=== PATIENT | female | born 1960 | race Caucasian/White ===

== ENCOUNTER 2016-11-02 19:29 | Emergency (ER) | payer OTHER ==
[~2016-11-02] VITALS: Ht 157.5 cm; Wt 57.0 kg
[2016-11-02 19:33] VITALS: TEMP 36.8; Ht 157.5 cm; Wt 57.0 kg
[2016-11-02] MEDS ORDERED: KETOROLAC TROMETHAMINE 30 MG/ML VIAL IV STA (20:13)
[2016-11-02] MEDS ORDERED: SODIUM CHLORIDE 0.9% 1000ML 1,000 ML IV STA (20:13)
[2016-11-02] MEDS ORDERED: MECLIZINE HCL 25 MG TAB PO STA (20:13)
[2016-11-02] MEDS ORDERED: SODIUM CHLORIDE 0.65% NA SOLN 45 ML (OCEAN) STA (20:13)
[2016-11-02] MEDS ORDERED: PROCHLORPERAZINE 5 MG/ML 2 ML VIAL IV STA (20:13)
[2016-11-02] MEDS ORDERED: AMOXICILLIN/CLAVULANATE TAB 875 MG TAB PO ONE (20:15)
[2016-11-02 20:35] LABS: BASO % 0.4 %; BASO ABS # 0.02 K/uL (0-0.2); COMPLETE YES; EOS % 3.2 %; HEMATOCRIT 39.7 % (37-47); IG% 0.2 %; LYMPH % 29.6 %; LYMPH ABS # 1.66 K/uL (1.2-3.4); MEAN CORPUSCULAR HEMOGLOBIN 28.7 pg (25-34); MEAN CORPUSCULAR HGB CONC 32.2 g/dl (32-36); MEAN PLATELET VOLUME 9.4 fL (7.4-10.4); MONO % 10.3 %; NEUT % 56.3 %; PLATELET COUNT 274 K/uL (130-400); RED BLOOD COUNT 4.46 M/uL (4.2-5.4); WHITE BLOOD COUNT 5.61 K/uL (4.8-10.8)
[2016-11-02] MEDS ORDERED: SUPPLEMENTS PO (20:52)
[2016-11-02] MEDS ORDERED: SERT1TAB68 PO (20:52)
--- NOTE | 2016-11-02 21:34 | EMERGENCY ROOM VISIT NOTE ---
History Report prepared by Ryalnd: Arti Keen Under the Supervision of: Dr. Caesar Price M.D. First contact with patient: 20:04 Chief Complaint: NAUSEA Stated Complaint: NAUSEA,SWEATY,WEAK,DIZZY History of Present Illness The patient is a 56 year old female who presents to the Emergency Room with complaints of an episode of nausea starting last night. The patient states that she felt better this morning and decided to go to work. She reports that while there she started to feel pressure in her head and get dizzy. She notes that the nausea came back as well. She states that she took Sudafed with no relief. The patient notes that she couldn't drive home. She complains that her hearing has worsened since getting sick. She denies a headache. Source of History: patient Onset: last night Position: other (global) Quality: other (global) Timing: other (episode) Associated Symptoms: No headache Note: The patient complains of dizziness and her hearing worsening. Review of Systems See HPI for pertinent positives & negatives. A total of 10 systems reviewed and were otherwise negative. Past Medical & Surgical Medical Problems: (1) Hypothyroid Family History Cancer Diabetes mellitus Hypertension Lung disease Social History Smoking Status: Current Every Day Smoker Alcohol Use: none Drug Use: none Marital Status: Housing Status: lives with significant other Occupation Status: employed Current/Historical Medications Scheduled Amoxicillin & Pot Clavulanate (Augmentin 875-125 mg), 1 TAB PO BID Ondasetron Odt (Zofran Odt), 4 MG SL Q6H Sertraline Hcl (Zoloft), 100 MG PO DAILY [Various Supplements], 1 EA PO UD Scheduled PRN Meclizine Hcl (Meclizine Hcl), 1 TAB PO TID PRN for Dizziness or Vertigo Allergies Coded Allergies: No Known Allergies (Unverified , 11/02/16) Physical Exam Vital Signs Date Time Temp Pulse Resp B/P (MAP) Pulse Ox O2 Delivery O2 Flow Rate FiO2 11/02/16 22:01 58 18 102/64 97 11/02/16 21:19 62 18 125/58 98 Room Air 11/02/16 20:41 50 11/02/16 19:33 36.8 71 18 124/81 97 Room Air Physical Exam GENERAL: Patient is a healthy-appearing well-nourished HEAD: Normocephalic atraumatic EYES: Ocular movements intact pupils equal and react to light OROPHARYNX mucous membranes are moist no exudates present no erythema or edema present NECK: Supple no nuchal rigidity CHEST: Good equal expansion LUNGS: Clear and equal to auscultation CARDIAC: Normal S1 and S2 ABDOMEN: Soft nontender no guarding BACK: No CVA tenderness EXTREMITIES: No pain upon palpation normal muscle strength in all groups no clubbing cyanosis or edema NEURO: Patient is following commands and answering questions appropriately. Alert and oriented x3 Cranial Nerves 2-12 grossly intact Medical Decision & Procedures Laboratory Results 11/02/16 20:26 Red Blood Count 4.46, Mean Corpuscular Volume 89.0, Mean Corpuscular Hemoglobin 28.7, Mean Corpuscular Hemoglobin Concent 32.2, Mean Platelet Volume 9.4, Neutrophils (%) (Auto) 56.3, Lymphocytes (%) (Auto) 29.6, Monocytes (%) (Auto) 10.3, Eosinophils (%) (Auto) 3.2, Basophils (%) (Auto) 0.4, Neutrophils # (Auto ) 3.16, Lymphocytes # (Auto) 1.66, Monocytes # (Auto) 0.58, Eosinophils # (Auto ) 0.18, Basophils # (Auto) 0.02 11/02/16 20:26 Test 11/02/16 20:26 11/02/16 21:20 White Blood Count 5.61 K/uL (4.8-10.8) Red Blood Count 4.46 M/uL (4.2-5.4) Hemoglobin 12.8 g/dL (12.0-16.0) Hematocrit 39.7 % (37-47) Mean Corpuscular Volume 89.0 fL (80-100) Mean Corpuscular Hemoglobin 28.7 pg (25-34) Mean Corpuscular Hemoglobin Concent 32.2 g/dl (32-36) Platelet Count 274 K/uL (130-400) Mean Platelet Volume 9.4 fL (7.4-10.4) Neutrophils (%) (Auto) 56.3 % Lymphocytes (%) (Auto) 29.6 % Monocytes (%) (Auto) 10.3 % Eosinophils (%) (Auto) 3.2 % Basophils (%) (Auto) 0.4 % Neutrophils # (Auto) 3.16 K/uL (1.4-6.5) Lymphocytes # (Auto) 1.66 K/uL (1.2-3.4) Monocytes # (Auto) 0.58 K/uL (0.11-0.59) Eosinophils # (Auto) 0.18 K/uL (0-0.5) Basophils # (Auto) 0.02 K/uL (0-0.2) RDW Standard Deviation 43.6 fL (36.4-46.3) RDW Coefficient of Variation 13.2 % (11.5-14.5) Immature Granulocyte % (Auto) 0.2 % Immature Granulocyte # (Auto) 0.01 K/uL (0.00-0.02) Anion Gap 7.0 mmol/L (3-11) Est Creatinine Clear Calc Drug Dose 61.3 ml/min Estimated GFR () 92.7 Estimated GFR (Non- 79.9 BUN/Creatinine Ratio 38.7 (10-20) Calcium Level 8.7 mg/dl (8.5-10.1) Total Bilirubin 0.4 mg/dl (0.2-1) Direct Bilirubin mg/dl (0-0.2) Aspartate Amino Transf (AST/SGOT) 27 U/L (15-37) Alanine Aminotransferase (ALT/SGPT) 30 U/L (12-78) Alkaline Phosphatase 64 U/L (45-117) Total Protein 6.6 gm/dl (6.4-8.2) Albumin 3.9 gm/dl (3.4-5.0) Lipase 156 U/L (73-393) Chemistry Specimen Hemolysis Urine Color YELLOW Urine Appearance CLEAR (CLEAR) Urine pH 5.0 (4.5-7.5) Urine Specific [place] 1.027 (1.000-1.030) Urine Protein NEG (NEG) Urine Glucose (UA) NEG (NEG) Urine Ketones TRACE (NEG) Urine Occult Blood NEG (NEG) Urine Nitrite NEG (NEG) Urine Bilirubin NEG (NEG) Urine Urobilinogen NEG (NEG) Urine Leukocyte Esterase SMALL (NEG) Urine WBC (Auto) 1-5 /hpf (0-5) Urine RBC (Auto) 0-4 /hpf (0-4) Urine Hyaline Casts (Auto) 0 /lpf (0-5) Urine Epithelial Cells (Auto) 10-20 /lpf (0-5) Urine Bacteria (Auto) NEG (NEG) Labs reviewed by ED physician. Medications Administered Medications (Trade) Dose Ordered Sig/Malini Route Start Time Stop Time Status Last Admin Dose Admin Sodium Chloride 1,000 ml @ 999 mls/hr Q1H1M STAT IV 11/02/16 20:13 11/02/16 21:13 DC 11/02/16 20:29 999 MLS/HR Ketorolac Tromethamine (Toradol Inj) 30 mg NOW STAT IV 11/02/16 20:13 11/02/16 20:17 DC 11/02/16 20:29 30 MG Prochlorperazine Edisylate (Compazine Inj) 5 mg NOW STAT IV 11/02/16 20:13 11/02/16 20:17 DC 11/02/16 20:29 5 MG Meclizine HCl (Antivert Tab) 25 mg NOW STAT PO 11/02/16 20:13 11/02/16 20:17 DC 11/02/16 20:29 25 MG Amoxicillin/ Clavulanate Potassium (Augmentin Tab) 875 mg ONE ONCE PO 11/02/16 20:15 11/02/16 20:17 DC 11/02/16 20:29 875 MG Sodium Chloride (Massac Nasal [place]) 2 sprays NOW STAT NA 11/02/16 20:13 11/02/16 20:17 DC 11/02/16 20:29 2 SPRAYS Ondansetron HCl (ZOFRAN ODT 4MG Home Pack) 1 homepack UD ONCE PO 11/02/16 21:45 11/02/16 21:46 DC 11/02/16 21:53 1 HOMEPACK ED Course 2006: Past medical records reviewed. The patient was evaluated in room A10. A complete history and physical examination was performed. 2012: Ordered Massac Nasal [place] 2 sprays NA, Antivert Tab 25 mg PO, Compazine Inj 5 mg IV, Toradol Inj 30 mg IV, NSS 1000 ml @ 999 mls/hr IV. 2014: Ordered Augmentin Tab 875 mg PO. 2144: Ordered Ondansetron HCl 1 homepack PO. 2146: Upon reexamination the patient is resting comfortably. I discussed results and treatment plan with the patient. She verbalizes agreement and understanding. The patient is ready for discharge. Medical Decision Etiologies such as migraine headache, meningitis, sinusitis, CO exposure, ICH, SAH, infection, tumor, headache, sinus thrombosis, arterial dissection, as well as others were entertained. This is a 56-year-old female who presents emergency department complaining of sinusitis-like symptoms. Based on her physical exam and fact that the patient does not have any evidence of meningitis or encephalitis on examination we decided to place the patient on Augmentin along with nasal saline spray. In addition the patient was also given meclizine for dizziness. Repeat examination revealed much improvement the patient's symptoms. I do feel that the patient is well enough to be discharged home for follow-up with her primary care physician. Patient was in agreement with the treatment plan. Impression Primary Impression: Sinusitis Scribe Attestation The scribe's documentation has been prepared under my direction and personally reviewed by me in its entirety. I confirm that the note above accurately reflects all work, treatment, procedures, and medical decision making performed by me. Departure Information Dispostion Home / Self-Care Prescriptions Ondasetron Odt (ZOFRAN ODT) 4 Mg Tab 4 MG SL Q6H for Nausea, #6 TAB Prov: Caesar Price MD 11/02/16 Meclizine Hcl (MECLIZINE HCL) 25 Mg Tab 1 TAB PO TID Y for Dizziness or Vertigo for 10 Days, #30 TAB Prov: Caesar Price MD 11/02/16 Amoxicillin & Pot Clavulanate (Augmentin 875-125 mg) 1 Tab Tab 1 TAB PO BID for 10 Days, #20 TAB Prov: Caesar Price MD 11/02/16 Referrals Clarke Oliver D.O. (PCP) Forms HOME CARE DOCUMENTATION FORM, IMPORTANT VISIT INFORMATION Patient Instructions My [facility] Additional Instructions Follow up with DR Britt's office You have been examined and treated today on an emergency basis only. This is not a substitute for, or an effort to provide, complete comprehensive medical care. It is impossible to recognize and treat all injuries or illnesses in a single emergency department visit. It is therefore important that you follow up closely with Dr Oliver. Call as soon as possible for an appointment. Thank you for your time and consideration. I look forward to speaking with you again soon. Please don't hesitate to call us if you have any questions. Problem Qualifiers Primary Impression: Sinusitis Sinusitis location: unspecified location Chronicity: unspecified Qualified Codes: J32.9 - Chronic sinusitis, unspecified
[2016-11-02] MEDS ORDERED: MECL1TAB42 PO (21:43)
[2016-11-02] MEDS ORDERED: AMOX875T PO (21:43)
[2016-11-02] MEDS ORDERED: ONDA4TAB10 SL (21:43)
[2016-11-02] MEDS ORDERED: ONDANSETRON HOME PACK 4MG OD TAB PO ONE (21:45)
[2016-11-02 21:50] LABS: MANUAL MICROSCOPIC REQUIRED? NO; REVIEW REQ? NO; URINE APPEARANCE CLEAR (CLEAR); URINE BILIRUBIN NEG (NEG); URINE COLOR YELLOW; URINE NITRITE NEG (NEG); URINE SPECIFIC GRAVITY 1.027 (1.000-1.030); UROBILINOGEN NEG (NEG)
[2016-11-02 22:01] VITALS: BP 102/64; PULSE 58; O2SAT 97
[2016-11-02 22:24] LABS: ALKALINE PHOSPHATASE 64 U/L (45-117); ALT/SGPT 30 U/L (12-78); AST/SGOT 27 U/L (15-37); BLOOD UREA NITROGEN 32 mg/dl (7-18); BUN/CREATININE RATIO 38.7 (10-20); CALCIUM 8.7 mg/dl (8.5-10.1); CARBON DIOXIDE 26 mmol/L (21-32); CHLORIDE 107 mmol/L (98-107); CREATININE 0.83 mg/dl (0.60-1.20); GLUCOSE 87 mg/dl (70-99); POTASSIUM 3.8 mmol/L (3.5-5.1); SODIUM 140 mmol/L (136-145)
== END 2016-11-02 22:02 | disposition home or self-care (01) ==
LOC: C.EDB 19:31 → C.EDA 22:02
DX: J32.9 Chronic sinusitis, unspecified (principal); R42 Dizziness and giddiness; E03.9 Hypothyroidism, unspecified; F17.200 Nicotine dependence, unspecified, uncomplicated; Z79.899 Other long term (current) drug therapy; Z80.9 Family history of malignant neoplasm, unspecified; Z83.3 Family history of diabetes mellitus; Z82.49 Family history of ischemic heart disease and other diseases of the circulatory system